=== PATIENT | female | born 1990 | race Caucasian/White ===

== ENCOUNTER 2019-11-26 08:10 | Inpatient (IN) | payer OTHER ==
[2019-11-26] MEDS: DEXTROSE 5%-LACTATED RINGERS 1,000 ML IV SCH (08:30)
[2019-11-26 09:58] VITALS: BMI 28.0
[2019-11-26] MEDS ORDERED: DINOPROSTONE 10 MG VAGINAL SUPPOSITORY VG ONE (11:30)
[2019-11-26 11:50] LABS: BASO % 0.3 % (0-2.0); EOS % 0.6 % (0-4.5); HEMOGLOBIN 11.6 GM/dL (10.7-15.3); LYMPH % 22.6 % (8-40); MCH 23.5 pg (25.7-33.7); MCHC 31.2 g/dl (32.0-36.0); MEAN CELL VOLUME 75.4 fl (80-96); MEAN PLT VOLUME 9.7 fl (7.5-11.1); MONO % 7.7 % (3.8-10.2); NEUT % 68.8 % (42.8-82.8); PLATELET COUNT 244 K/MM3 (134-434); RBC 4.91 M/mm3 (3.60-5.2); RDW 19.8 % (11.6-15.6)
[2019-11-26 11:55] LABS: INR 0.92 (0.83-1.09); PROTHROMBIN TIME (PATIENT) 10.8 SEC (9.7-13.0)
--- NOTE | 2019-11-26 11:56 | HP ---
Past Medical History - Primary Care Physician PCP:: Bright Simon - Admission Chief Complaint: 29yo P0 with at EGA 40w3d admitted for labor indx. History of Present Illness: Patient with post term admitted for labor indx. The pt has some mild irregular contractions. 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: Alzheimer's, CVA, Dementia, Migraine, Multiple Sclerosis, Peripheral Neuropathy, Parkinson's, Seizure, Syncope, TIA, Vertigo, Other Cardiovascular: No: AFIB, Aneurysm, Aortic Insufficiency, Aortic Stenosis, CAD, CHF, Deep Vein Thrombosis, HTN, Hyperlipdemia, ND, Mitral Insufficiency, Mitral Stenosis, Murmur, Pulmonary Hypertension, Other Pulmonary: No: Asthma, Bronchitis, Cancer, COPD, O2 Dependent, Pneumonia, Previously Intubated, Pulmonary Embolus, Pulmonary Fibrosis, Sleep Apnea, Other Gastrointestinal: No: Ascites, Cancer, Constipation, Crohn's Disease, Diverticulitis, Diverticulosis, Esophageal Varices, Gastritis, GERD, GI Bleed, Hemorrhoids, Hiatal Hernia, Inflamatory Bowel Disease, Irritable Bowel Disease, Pancreatitis, Peptic Ulcer Disease, Ulcerative Colitis, Other Hepatobiliary: No: Cirrhosis, Cholelithiasis, Cholecystitis, Choledocholithiasis, Hepatitis A, Hepatitis B, Hepatitis C, Other Renal/: No: Renal Failure, Renal Inusuff, BPH, Cancer, Hematuria, Hemodialysis, Neurogenic Bladder, Renal Calculi, UTI, Other Reproductive: No: Ectopic , Endometriosis, Fibroids, PID, Polycystic Ovary Syndrome, Postmenopausal, Other ...: 1 ...Para: 0 ...Term: 0 ...: 0 ...Spon : 0 ...Induced : 0 ...Living Children: 0 ...Multiple Gestation: 0 ...LMP: 02/18/19 ... Weeks Gestation by Dates: 40.3 ...EDC by Dates: 11/25/19 ...EDC by Sono: 11/23/19 Heme/Onc: No: Anemia, B12 Deficiency, Bleeding Disorder, Cancer, Current Chemotherapy, Current Radiation Therapy, Hemochromatosis, Hypercoaguable State, Myeloproliferative Synd, Sickle Cell Disease, Sickle Cell Trait, Thrombocytope amanda, Other Infectious Disease: No: AIDS, C-Diff, Herpes Zoster, HIV, MRSA, STD's, Tuberculosis, VREF, Other Psych: No: Addictions, Anxiety, Bipolar, Depression, Panic, Psychosis, Schizophrenia, Other Musculoskeletal: No: Bursitis, Chronic low back pain, Hemiparesis, Hemiplegia, Osteoarthritis, Paraplegia, Other Rheumatology: No: Fibromyalgia, Gout, Lupus, Rheumatoid Arthritis, Sarcoidosis, Vasculitis, Other ENT: No: Allergic Rhinitis, Sinusitis, Other Endocrine: No: [place]'s Disease, [place]'s Disease, Diabetes Insipidus, Diabetes Mellitus, Hyperparathyroidism, Hyperthyroidism, Hypothyroidism, Osteopenia, SIADH, Other Dermatology: No: Basal Cell, Cellulitis, Eczema, Melanoma, Psoriasis, Squamous Cell, Other - Past Surgical History Past Surgical History: Yes: None Hx Myomectomy: No Hx Transabdominal Cerclage: No - Smoking History Smoking history: Never smoked Have you smoked in the past 12 months: No - Alcohol/Substance Use Hx Alcohol Use: No History of Substance Use: reports: None - Social History Usual Living Arrangement: Yes: With Spouse Do you think of yourself as: Straight/Heterosexual ADL: Independent History of Recent Travel: No Home Medications - Allergies Allergies/Adverse Reactions: Allergies Allergy/AdvReac Type Severity Reaction Status Date / Time No Known Allergies Allergy Verified 11/26/19 09:50 - Home Medications Home Medications: Ambulatory Orders Vitamins (Sjr) - 1 tab PO DAILY 11/26/19 Family Medical History Family History: Denies Review of Systems Findings/Remarks: Pt reports feeling some contractions - Review of Systems Constitutional: reports: No Symptoms Eyes: reports: No Symptoms HENT: reports: No Symptoms Neck: reports: No Symptoms Cardiovascular: reports: No Symptoms Respiratory: reports: No Symptoms Gastrointestinal: reports: No Symptoms Genitourinary: reports: No Symptoms Breasts: reports: No Symptoms Reported Musculoskeletal: reports: No Symptoms Integumentary: reports: No Symptoms Neurological: reports: No Symptoms Endocrine: reports: No Symptoms Hematology/Lymphatic: reports: No Symptoms Psychiatric: reports: No Symptoms Pain Intensity: 2 Physical Exam - Maternity Vital Signs: Vital Signs Temperature 98.1 F 11/26/19 11:00 Pulse Rate 86 11/26/19 11:00 Respiratory Rate 20 11/26/19 11:00 Blood Pressure 122/68 11/26/19 11:00 O2 Sat by Pulse Oximetry (%) Constitutional: Yes: Well Nourished, No Distress, Calm Eyes: Yes: WNL, Conjunctiva Clear, EOM Intact HENT: Yes: WNL, Atraumatic, Normocephalic Neck: Yes: WNL, Supple, Trachea Midline Cardiovascular: Yes: WNL, Regular Rate and Rhythm Lungs: Clear to auscultation, Normal air movement Breast(s): Yes: WNL - Abdominal Exam/OB Fundal Height: 41 Number of Fetuses: Single Presentation: Vertex Contractions: Yes Regularity: Irregular Intensity: Mild/Mod Monitor Mode: External Heart Rate (range): 140 Heart Rate Location: Midline Category: I Accelerations: Uniform Decelerations: None - Vaginal Exam/OB Vaginal Bleeding: No Speculum Exam: No Dilatation (cm): 1 Effacement (%): 80 Amniotic Membrane Status: Intact Presentation: Vertex/Position Station: -3 (EFW 4000 gram by Jose maneuvers (~4400 gm by sono), gynecoid pelvimetry.) - Physical Exam Musculoskeletal: Yes: WNL Extremities: Yes: WNL Edema: No Integumentary: Yes: WNL Deep Tendon Reflex Grade: Normal +2 ...Motor Strength: WNL Psychiatric: Yes: WNL, Alert, Oriented Hemorrhage Risk Assessment - Risk Factors Medium Risk Factors: Yes: EFW greater than 4000g High Risk Factors: Yes: None Risk Score: 1 Risk Level: Medium Risk Imaging - Results Ultrasound: Report Reviewed Assessment/Plan 29yo P0 with at EGA 40w3d admitted for labor indx. Fetus with Category I tracing. Patient with unfavorable cervical exam. Pt is not in labor yet, no cervical change from exam in the office. Adequate gynecoid pelvimetry on exam. We had long discussion re: risks, benefits, and alternatives of labor induction. I explained the options of expectant management awaiting spontaneous labor, induction of labor, and elective section. The risks of uterine tachysystole, distress, uterine rupture, need for emergency C/S, hemorrhage, infection, scarring, etc. were discussed. We also discussed the risks of meconium aspiration, shoulder dystocia, and anesthesia options. We sp ent additional time discussing with patient and her the risks of VANESSA and delivery of fetus with suspected macrosomia. I explained that the risks of shoulder dystocia are higher and it cannot be predicted, explained the risks of and/or maternal injury, morbidity, mortality. We discussed the increased risks abnormal labor, hemorrhage, emergency C/S, etc. The pt refused an elecive C/S and wants to prroceed with labor indx. We discussed the alternative methods of induction with Cervidil, Cytotec, Folley ballon, and pitocin. The pt prefers Cervidil followed by pitocin, if needed.
[2019-11-26 11:58] LABS: ACTIVATED PTT 25.5 SECONDS (25.2-36.5)
[2019-11-26] MEDS ORDERED: BUTORPHANOL TARTRATE 1 MG/ML VIAL IVPB ONE (12:00)
[2019-11-26] MEDS ORDERED: PROMETHAZINE HCL 25 MG/1 ML VIAL IVPB ONE (12:00)
[2019-11-26] MEDS ORDERED: BUTORPHANOL TARTRATE 2 MG/ML VIAL IVPB ONE (12:00)
[2019-11-26] MEDS ORDERED: BUTORPHANOL TARTRATE 2 MG/ML VIAL ONE (12:03)
[2019-11-26] MEDS ORDERED: PROMETHAZINE HCL 25 MG/1 ML VIAL ONE (12:04)
[2019-11-26 12:24] LABS: BLOOD UREA NITROGEN 6.4 mg/dL (7-18); CALCIUM 8.8 mg/dL (8.5-10.1); CREATININE 0.6 mg/dL (0.55-1.3); POTASSIUM 4.8 mmol/L (3.5-5.1)
[2019-11-26] MEDS ORDERED: PCA PUMP NR ONE ×2 (16:08→20:32)
[2019-11-26] MEDS ORDERED: FENTANYL/BUPIVACAINE/NS/PF - PCEA - 50 ML DISP.SYRIN EP ONE ×2 (16:08→20:34)
[2019-11-26] MEDS ORDERED: BUPIVACAINE HCL/PF 0.25% (2.5MG/ML) 10 ML VIAL ONE ×2 (17:00→20:30)
[2019-11-26] MEDS ORDERED: NALOXONE HCL 0.4 MG/ML VIAL IVPUSH PRN (17:25)
[2019-11-26] MEDS ORDERED: FENTANYL/BUPIVACAINE/NS/PF - PCEA - 50 ML DISP.SYRIN EP SCH (17:30)
[2019-11-26] MEDS ORDERED: ELECTROLYTE-148 SOLN 500 ML IV ONE (18:29)
[2019-11-26] MEDS ORDERED: ELECTROLYTE-148 SOLN 1,000 ML IV SCH (18:30)
--- NOTE | 2019-11-26 21:31 | PN ---
Ante-Partal Exam - Subjective Subjective: Pt w/o complaints Vital Signs: Vital Signs Temperature 98.7 F 11/26/19 20:00 Pulse Rate 70 11/26/19 21:15 Respiratory Rate 20 11/26/19 21:15 Blood Pressure 109/63 11/26/19 21:15 O2 Sat by Pulse Oximetry (%) 100 11/26/19 21:15 Bleeding: No Headache: No Visual changes: No Right upper quadrant pain: No Pain (scale 1-10): 0 - Contractions Contractions: Yes Regularity: Regular Intensity: Mod/Strong Monitor Mode: External - Exam during Labor Heart Rate: 140 Variability: Moderate Heart Rate Location: Midline Category: I Monitor Accelerations: Present Monitor Decelerations: None Exam: Vaginal Dilatation (cm): 2 Effacement (%): 90 Amniotic Membrane Status: Leaking Amniotic Fluid: Clear Presentation: Vertex Station: -3 - Intrapartum Hemorrhage Risk Medium Risk Factors: None High Risk Factors: None Risk Score: 0 Risk Level: Low Risk - Assessment/Plan Assessment/Plan: 29yo P0 with at EGA 40w3d undergoing labor indx. She is alysa spontaneously but no progress in latent labor. We again discussed options of continued labor and possible pitocin infusion vs C/S. The pt prefers to continue spont labor.
[2019-11-26] MEDS ORDERED: CITRIC ACID/SODIUM CITRATE 30 ML UNIT-DOSE CUP PO ONE (22:14)
--- NOTE | 2019-11-26 22:20 | PN ---
Ante-Partal Exam - Subjective Subjective: Pt decided to have a . We discussed the risks and benefits. Vital Signs: Vital Signs Temperature 98.3 F 11/26/19 21:00 Pulse Rate 70 11/26/19 21:15 Respiratory Rate 20 11/26/19 21:15 Blood Pressure 109/63 11/26/19 21:15 O2 Sat by Pulse Oximetry (%) 100 11/26/19 21:15 Bleeding: No Headache: No Visual changes: No Right upper quadrant pain: No Pain (scale 1-10): 0 - Contractions Contractions: Yes Regularity: Regular Intensity: Moderate Monitor Mode: External - Exam during Labor Heart Rate: 140 Variability: Moderate Heart Rate Location: Midline Category: I Monitor Accelerations: Present Monitor Decelerations: None Amniotic Fluid: Clear Presentation: Vertex Station: -3 - Intrapartum Hemorrhage Risk Medium Risk Factors: None High Risk Factors: None Risk Score: 0 Risk Level: Low Risk - Assessment/Plan Assessment/Plan: Plan to proceed with C/S. We discussed the risks and benefits of C/S at length, including but not limited to scarring, pain, bleeding, infection, injury to underlying organs and structures, need for additional surgery to repair/treat any problems or complications, complications/injuries, etc. The pt verbali zed her understanding and requested to proceed with surgery. The pt is aware that all surgeries have risks and no guarantees can be provided.
[2019-11-26] MEDS ORDERED: LIDO 2%/EPI 1:200000 PRESRVFRE (20 ML SDVIAL) ONE (22:33)
[2019-11-26] MEDS ORDERED: MIDAZOLAM HCL 2 MG/2 ML SINGLE DOSE VIAL ONE (23:10)
[2019-11-26] MEDS ORDERED: OXYTOCIN 10 UNITS/ML VIAL ONE ×4 (23:35)
[2019-11-26] MEDS ORDERED: PHENYLEPHRINE HCL 10 MG/1 ML SINGLE DOSE VIAL ONE (23:35)
[2019-11-26] MEDS ORDERED: ceFAZolin SODIUM 1 GM VIAL ONE ×2 (23:35)
[2019-11-26] MEDS ORDERED: HYDROmorphone *PCA* 10MG/50ML DISP.SYRIN PCA SCH (23:45)
[2019-11-26] MEDS ORDERED: METHYLERGONOVINE MALEATE 0.2 MG/1 ML AMP IM PRN (23:48)
[2019-11-26] MEDS ORDERED: BENZOCAINE 28 GM HEMORRHOIDAL OINTMENT TP PRN (23:48)
[2019-11-26] MEDS ORDERED: oxyCODONE HCL 5 MG TABLET PO PRN (23:48)
[2019-11-26] MEDS ORDERED: BENZOCAINE 20% 57 GM BOTTLE TP PRN (23:48)
[2019-11-26] MEDS ORDERED: WITCH HAZEL 50% (TUCKS) 40 PAD/JAR PAD TP PRN (23:48)
[2019-11-26] MEDS ORDERED: SENNOSIDES/DOCUSATE COMBO (SENNA PLUS) TABLET (UD) PO PRN (23:48)
[2019-11-26] MEDS ORDERED: ONDANSETRON 4 MG/2 ML VIAL IVPUSH PRN (23:52)
[2019-11-26] MEDS ORDERED: PROMETHAZINE HCL 25 MG/1 ML VIAL IVPUSH PRN (23:52)
--- NOTE | 2019-11-26 23:55 | OP ---
Operative Note - Note: Operative Date: 11/26/19 Pre-Operative Diagnosis: Post term prgnancy at EGA 40w 3d. macrosomia. Failed induction, failure to progress. Operation: Primary LT C/S Findings: Live baby boy in Vtx/OP presentation, light meconium in amniotic fluid, nuchal cord x 1. 9-9. Wt 9lb 5 oz. Normal uterus, ovaries, tubes. Post-Operative Diagnosis: Same as Pre-op Surgeon: Bright Simon Hard Candy Batch Mixer: Savi Barnett Anesthesiologist/WORKFORCE ADVISOR: Kael Grant Anesthesia: Epidural Specimens Removed: Placenta Estimated Blood Loss (mls): 700 Drains & Tubes with Location: Mcguire cath Drains, Volume Out (mls): 300 Blood Volume Replaced (mls): 0 Fluid Volume Replaced (mls): 1,500 Operative Report Dictated: Yes
[2019-11-27] MEDS ORDERED: HYDROmorphone *PCA* 10MG/50ML DISP.SYRIN ONE (01:00)
[2019-11-27] MEDS: OXYTOCIN 20 UNITS in 0.9% NS 20 UNIT/1,000 ML INFUS.BAG IV SCH (03:17)
[2019-11-27] MEDS: IBUPROFEN 800 MG/8 ML IJ IVPB PRN ×2 (05:52→22:34)
--- NOTE | 2019-11-27 08:22 | OP ---
DATE OF OPERATION: 11/26/2019 PREOPERATIVE DIAGNOSIS: Post term with estimated gestational age of 40 weeks and 3 days, macrosomia, failed induction of labor, failure to progress. POSTOPERATIVE DIAGNOSIS: Post term with estimated gestational age of 40 weeks and 3 days, macrosomia, failed induction of labor, failure to progress. PROCEDURE: Primary low transverse section via Pfannenstiel skin incision. SURGEON: Bright Simon MD WOVEN LABEL DESIGNER: Savi Barnett MD ANESTHESIOLOGIST: Kael Grant MD ANESTHESIA: Epidural. COMPLICATIONS: None. ESTIMATED BLOOD LOSS: 700 mL. URINE OUTPUT: 300 mL of clear urine at the end of the procedure. IV FLUIDS: 1500 mL. PATHOLOGY: Placenta. FINDINGS: Live baby boy in vertex presentation with occiput posterior. Light meconium in amniotic fluids. A nuchal cord noted wrapped around once. 's 9 and 9. Baby's weight 9 pounds and 5 ounces. Normal uterus, ovaries and fallopian tubes were noted. PROCEDURE: The patient was met preoperatively. Risks, benefits and alternatives of surgery were discussed in details. The consent was form was reviewed and explained. The patient verbalized her understanding and requested to proceed with surgery. The patient was brought to the OR with the IV running. She was placed on the surgical table in the supine position. The epidural anesthesia was bolused and the level was found to be adequate. The patient was prepped and draped in the usual sterile fashion. A Mcguire catheter was inserted and left to drain to gravity. The timeout was conducted as per standard protocol. The surgeons then proceeded with the operation. A Pfannenstiel skin incision was made with the knife approximately 2 cm above the pubic symphysis. The incision was extended bilaterally. The incision was then carried down to the level of fascia. The fascia was incised in the midline. The fascia incision was extended bilaterally using Dodson scissors. The fascia was then dissected away from the rectus muscles superiorly and inferiorly using sharp dissection. The rectus muscles were in the midline using blunt dissection. The peritoneum was tented up with 2 Cici clamps and entered sharply. The peritoneal incision was extended superiorly and inferiorly. The bladder peritoneum was then dissected away from the lower uterine segment. The bladder was reflected downwards using a Irma retractor. The uterus was incised transversely in the lower uterine segment. The incision was extended bilaterally using bandage scissors. The amniotic fluid was noted to be stained lightly with meconium. The baby was delivered from vertex presentation without complications. The nuchal cord was noted to be wrapped around once and was released without difficulty. The baby was crying spontaneously and was handed to the waiting medicaid collection specialist. A segment of the umbilical cord was secured for umbilical cord blood gas. The placenta was then removed manually and without complications. The uterus was cleared of all clots and debris using laparotomy laps. The uterine incision was repaired using the 0 Biosyn suture with good hemostasis and approximation. The uterine incision was then imbricated using a secondary layer of closure with a 0 Biosyn suture. Good hemostasis was confirmed. The bladder peritoneum was then approximated using a 0 Biosyn suture. Once again, good hemostasis was confirmed. The operative site was irrigated using copious amounts of normal saline. The parietal peritoneum was then approximated using 2-0 chromic suture. The rectus muscles were approximated using several interrupted 2-0 chromic sutures. The fascia was closed using a 0 Vicryl suture with a running stitch. The No's fascia and the subcutaneous adipose tissues were approximated using several interrupted 2-0 chromic sutures. The skin was closed using a 4-0 Vicryl suture using a subcutaneous stitch. Sponge, lap, needle counts were correct. The patient tolerated the procedure well and she was transferred to recovery room in stable condition and awake. Myah [id number]
[2019-11-27 09:42] LABS: BASO % 0.6 % (0-2.0); HEMATOCRIT 30.6 % (32.4-45.2); HEMOGLOBIN 9.7 GM/dL (10.7-15.3); LYMPH % 16.1 % (8-40); MCH 23.9 pg (25.7-33.7); MCHC 31.7 g/dl (32.0-36.0); MEAN CELL VOLUME 75.2 fl (80-96); MEAN PLT VOLUME 9.2 fl (7.5-11.1); MONO % 7.8 % (3.8-10.2); NEUT % 75.5 % (42.8-82.8); PLATELET COUNT 206 K/MM3 (134-434); RBC 4.07 M/mm3 (3.60-5.2); RDW 19.7 % (11.6-15.6)
[2019-11-27] MEDS: ENOXAPARIN NA (PORCINE) 40 MG/0.4 ML DISP.SYRIN SQ SCH (09:53)
[2019-11-27] MEDS: PRENATAL VITAMINS W/ FOLIC ACID TABLET (FP) PO SCH (09:54)
[2019-11-27] MEDS: CEFAZOLIN 1 GM/D5W 1 GM/50 ML BAG IVPB SCH ×2 (09:54→15:31)
[2019-11-27] MEDS: ACETAMINOPHEN 325 MG TABLET (FP) PO PRN ×2 (12:28→17:49)
[2019-11-27] MEDS: IBUPROFEN 600 MG TABLET (FP) PO PRN ×2 (12:35→17:49)
--- NOTE | 2019-11-27 12:59 | PN ---
Post Progress Note - Subjective Subjective: Patient without acute complaints. Reports tolerating oral intake without nausea or vomiting. Ambulating without dizziness. Denies fevers or chills. Pain well controlled with oral pain medication. Pumping/breast feeding without issue. Passing flatus. Post Day: 1 Type of Delivery: Primary C/S Vital Signs: Vital Signs Temperature 98.0 F 11/27/19 12:20 Pulse Rate 87 11/27/19 12:20 Respiratory Rate 20 11/27/19 12:20 Blood Pressure 109/63 11/27/19 12:20 O2 Sat by Pulse Oximetry (%) 95 11/27/19 12:20 Breast Exam: Yes: Soft Uterus: Yes: Fundus Firm, Fundus below umbilicus, Non-tender Incision: Yes: Dressing dry and intact Abdomen/GI: Yes: Abdomen soft, Passing flatus, Tolerating PO Lochia: Yes: Rubra Lochia, amount: Small Extremities: Yes: Calves non-tender Perineum: Yes: Intact Activity: Ambulating - Labs Labs: CBC WBC 13.0 K/mm3 (4.0-10.0) H 11/27/19 09:24 RBC 4.07 M/mm3 (3.60-5.2) 11/27/19 09:24 Hgb 9.7 GM/dL (10.7-15.3) L 11/27/19 09:24 Hct 30.6 % (32.4-45.2) L D 11/27/19 09:24 MCV 75.2 fl (80-96) L 11/27/19 09:24 MCH 23.9 pg (25.7-33.7) L 11/27/19 09:24 MCHC 31.7 g/dl (32.0-36.0) L 11/27/19 09:24 RDW 19.7 % (11.6-15.6) H 11/27/19 09:24 Plt Count 206 K/MM3 (134-434) 11/27/19 09:24 MPV 9.2 fl (7.5-11.1) 11/27/19 09:24 Absolute Neuts (auto) 9.8 K/mm3 (1.5-8.0) H 11/27/19 09:24 Neutrophils % 75.5 % (42.8-82.8) 11/27/19 09:24 Lymphocytes % 16.1 % (8-40) D 11/27/19 09:24 Monocytes % 7.8 % (3.8-10.2) 11/27/19 09:24 Eosinophils % 0.0 % (0-4.5) D 11/27/19 09:24 Basophils % 0.6 % (0-2.0) 11/27/19 09:24 Nucleated RBC % 0 % (0-0) 11/27/19 09:24 Assessment/Plan 29yo P1 s/p primary LT C/S, doing well stable, afebrile. The pt is asymptomatic for s/sxs of anemia. care instructions reviewed. Postoperative care and instructions reviewed. Continue routine postop care. Ambulation encouraged.
[2019-11-27] MEDS ORDERED: PCA PUMP KEY 1 EACH EACH ONE (18:06)
[2019-11-27] MEDS ORDERED: BISACODYL 10 MG SUPP.RECT RC PRN (23:49)
[2019-11-28] MEDS: CEFAZOLIN 1 GM/D5W 1 GM/50 ML BAG IVPB SCH (01:13)
[2019-11-28] MEDS: DEXTROSE 5%-LACTATED RINGERS 1,000 ML IV SCH (01:13)
[2019-11-28] MEDS: OXYTOCIN 20 UNITS in 0.9% NS 20 UNIT/1,000 ML INFUS.BAG IV SCH (01:15)
[2019-11-28] MEDS: ACETAMINOPHEN 325 MG TABLET (FP) PO PRN ×3 (04:53→18:32)
[2019-11-28] MEDS: IBUPROFEN 600 MG TABLET (FP) PO PRN ×3 (04:53→18:32)
--- NOTE | 2019-11-28 07:03 | PN ---
Progress Note, Physician Chief Complaint: s/p c section under spinal anesthesia History of Present Illness: post op day one, speech lang path for post op pain control - Current Medication List Current Medications: Active Medications Acetaminophen (Tylenol -) 650 mg PO Q4H PRN PRN Reason: FEVER Last Admin: 11/28/19 04:53 Dose: 650 mg Documented by: Benzocaine (Americaine 20% Thurmond -) 1 spray TP PRN PRN PRN Reason: Pain - Topical Benzocaine (Americaine Ointment -) 1 applic TP PRN PRN PRN Reason: Pain - Topical Bisacodyl (Dulcolax Suppository -) 10 mg RC PRN PRN PRN Reason: CONSTIPATION Enoxaparin Sodium (Lovenox -) 40 mg SQ DAILY [facility] Last Admin: 11/27/19 09:53 Dose: 40 mg Documented by: Ibuprofen (Motrin -) 600 mg PO Q4H PRN PRN Reason: PAIN LEVEL 1 - 3 Last Admin: 11/28/19 04:53 Dose: 600 mg Documented by: Ibuprofen (Caldolor Injection -) 800 mg IVPB Q8H PRN PRN Reason: PAIN LEVEL 1-5 Last Admin: 11/27/19 22:34 Dose: 800 mg Documented by: Methylergonovine Maleate (Methergine Injection -) 0.2 mg IM Q4H PRN PRN Reason: Excessive Bleeding (L&D) Naloxone HCl (Narcan -) 0.4 mg IVPUSH PRN PRN PRN Reason: Sedation Oxycodone HCl (Roxicodone -) 5 mg PO Q4H PRN PRN Reason: PAIN LEVEL 4 - 6 Multivit/Folic Acid/Iron ( Vitamins (Sjr) -) 1 tab PO DAILY [facility] Last Admin: 11/27/19 09:54 Dose: 1 tab Documented by: Promethazine HCl (Phenergan Injection -) 12.5 mg IVPUSH Q6H PRN PRN Reason: NAUSEA-FOR RESCUE AFTER 15 MIN Senna/Docusate Sodium (Pericolace -) 2 tablet PO HS PRN PRN Reason: CONSTIPATION Simethicone (Mylicon -) 80 mg PO Q4H PRN PRN Reason: GAS Witch Romina/Glycerin (Tucks Pads -) 1 pad TP PRN PRN PRN Reason: Pain - Topical - Objective Vital Signs: Vital Signs Temperature 98.0 F 11/27/19 22:00 Pulse Rate 71 11/27/19 22:00 Respiratory Rate 20 11/27/19 23:00 Blood Pressure 111/69 11/27/19 22:00 O2 Sat by Pulse Oximetry (%) 96 11/27/19 22:00 Constitutional: Yes: Well Nourished Cardiovascular: Yes: WNL Respiratory: Yes: WNL Gastrointestinal: Yes: WNL Labs: CBC, BMP 11/27/19 09:24 11/26/19 11:20 INR, PTT INR 0.92 (0.83-1.09) 11/26/19 11:20 Assessment/Plan Patient doing well, no adverse anesthetic reactions, pain controlled, patient not taking PO yet, will continue speech lang path until tolerating po. will continue to follow for pain management.
--- NOTE | 2019-11-28 09:51 | PN ---
Post Progress Note - Subjective Subjective: Patient without acute complaints. Reports tolerating regular diet without nausea or vomiting. Ambulating without dizziness. Denies fevers or chills. Pain is well controlled with oral pain medication. Passing flatus. Post Day: 2 Type of Delivery: Primary C/S Vital Signs: Vital Signs Temperature 98.0 F 11/27/19 22:00 Pulse Rate 71 11/27/19 22:00 Respiratory Rate 20 11/27/19 23:00 Blood Pressure 111/69 11/27/19 22:00 O2 Sat by Pulse Oximetry (%) 96 11/27/19 22:00 Breast Exam: Yes: Soft Uterus: Yes: Fundus Firm, Fundus below umbilicus, Non-tender Incision: Yes: Sutures intact Abdomen/GI: Yes: Abdomen soft, Tolerating PO Lochia: Yes: Rubra Lochia, amount: Small Extremities: Yes: Calves non-tender Perineum: Yes: Intact Activity: Ambulating - Labs Labs: CBC WBC 13.0 K/mm3 (4.0-10.0) H 11/27/19 09:24 RBC 4.07 M/mm3 (3.60-5.2) 11/27/19 09:24 Hgb 9.7 GM/dL (10.7-15.3) L 11/27/19 09:24 Hct 30.6 % (32.4-45.2) L D 11/27/19 09:24 MCV 75.2 fl (80-96) L 11/27/19 09:24 MCH 23.9 pg (25.7-33.7) L 11/27/19 09:24 MCHC 31.7 g/dl (32.0-36.0) L 11/27/19 09:24 RDW 19.7 % (11.6-15.6) H 11/27/19 09:24 Plt Count 206 K/MM3 (134-434) 11/27/19 09:24 MPV 9.2 fl (7.5-11.1) 11/27/19 09:24 Absolute Neuts (auto) 9.8 K/mm3 (1.5-8.0) H 11/27/19 09:24 Neutrophils % 75.5 % (42.8-82.8) 11/27/19 09:24 Lymphocytes % 16.1 % (8-40) D 11/27/19 09:24 Monocytes % 7.8 % (3.8-10.2) 11/27/19 09:24 Eosinophils % 0.0 % (0-4.5) D 11/27/19 09:24 Basophils % 0.6 % (0-2.0) 11/27/19 09:24 Nucleated RBC % 0 % (0-0) 11/27/19 09:24 Assessment/Plan 29yo P1 s/p primary LT C/S, doing well stable, afebrile. The pt is recovering appropriately. care reviewed. Continue routine postop care. Ambulation encouraged.
[2019-11-28] MEDS: ENOXAPARIN NA (PORCINE) 40 MG/0.4 ML DISP.SYRIN SQ SCH (10:03)
[2019-11-28] MEDS: PRENATAL VITAMINS W/ FOLIC ACID TABLET (FP) PO SCH (10:04)
--- NOTE | 2019-11-28 10:40 | DS ---
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 Signs: Vital Signs Temperature 98.0 F 11/27/19 22:00 Pulse Rate 71 11/27/19 22:00 Respiratory Rate 20 11/27/19 23:00 Blood Pressure 111/69 11/27/19 22:00 O2 Sat by Pulse Oximetry (%) 96 11/27/19 22:00 Constitutional: Yes: Well Nourished, No Distress, Calm Eyes: Yes: WNL, Conjunctiva Clear HENT: Yes: WNL, Atraumatic, Normocephalic Neck: Yes: WNL, Supple, Trachea Midline Cardiovascular: Yes: WNL, Regular Rate and Rhythm Respiratory: Yes: WNL, Regular, CTA Bilaterally Gastrointestinal: Yes: WNL, Normal Bowel Sounds, Soft ...Rectal Exam: Yes: Deferred Renal/: Yes: WNL Internal Exam Deferred: Yes ....Post : Yes: Uterus firm, Uterus non-tender, Slight lochia rubra Breast(s): Yes: WNL Musculoskeletal: Yes: WNL Extremities: Yes: WNL Edema: Yes Edema: LLE: Trace, RLE: Trace Integumentary: Yes: WNL Wound/Incision: Yes: Clean/Dry, Well Approximated, Sutures Intact, Steri Strips, Open to air Neurological: Yes: WNL, Alert, Oriented ...Motor Strength: WNL Psychiatric: Yes: WNL, Alert, Oriented Labs: CBC, BMP 11/27/19 09:24 11/26/19 11:20 Delivery - Delivery Section: Primary, Low Flap Transverse Type of Anesthesia: Epidural Episiotomy/Laceration: None EBL (cc): 700 Delivery, Single - Stages of Labor Date 1st Stage Initiatied: 11/26/19 Time 1st Stage Initiated: 12:10 Date of Delivery: 11/26/19 Time of Delivery: 23:01 Time Placenta Delivered: 23:02 Placenta: Yes: Expressed, Manual Removal, Normal Configuration - 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 Plan of Treatment: Normal postoperative and recovery. Encouraged breast feeding Goals: Normal postoperative and recovery. Condition: Good - Instructions Diet, Activity, Other Instructions: Follow-up visit in the office in 1 week. Call the office with any concerns. Physical activity Resume your normal everyday activity as tolerated no heavy lifting or exercise until seen by your surgeon. You may walk unlimited [place] of and climb stairs. You may resume driving the car when you feel safe and comfortable behind the wheel. No sexual activity as instructed. Wound care If you have a bandage, leave it on, and keep dry for 48-72 hours. After that time discard the outer bandage. If they are tapes on the skin under the out of bandage leave them in place. They will peel off in the next 7 to 10 days. Do Not Peel them off. You may shower the day after surgery. If there are tapes present on the skin, you may shower over them. Diet There are no dietary restrictions. Eat healthy, high-fiber foods. Drink 6 to 8 glasses of liquid each day. This will assist in keeping your bowels are regular. Pain management You may take Tylenol or acetaminophen or Ibuprofen (for example, Motrin, Advil etc.) from my pain prescription medication is ordered should be taken as prescribed for moderate to severe pain. Call MD for any of the following: Severe pain not relieved by medication Fever of 101 or higher Excessive bleeding or drainage on dressing Inability to urinate Referrals: Bright Simon MD [Staff Physician] - 1 Week Disposition: HOME - Home Medications Comprehensive Discharge Medication List: Ambulatory Orders Vitamins (Sjr) - 1 tab PO DAILY 11/26/19 Prescription Drug Monitoring Program (I-STOP) results: I-STOP not reviewed
[2019-11-28 12:05] LABS: POC NITRAZINE POS
[2019-11-28] MEDS: SIMETHICONE 80 MG TAB.CHEW (FP) PO PRN ×2 (12:06→18:32)
[2019-11-29] MEDS: ACETAMINOPHEN 325 MG TABLET (FP) PO PRN ×2 (02:46→10:19)
[2019-11-29] MEDS: SIMETHICONE 80 MG TAB.CHEW (FP) PO PRN ×2 (02:46→10:18)
[2019-11-29] MEDS: IBUPROFEN 600 MG TABLET (FP) PO PRN ×2 (02:47→10:18)
[2019-11-29 07:41] LABS: BASO % 0.3 % (0-2.0); EOS % 1.8 % (0-4.5); HEMATOCRIT 32.7 % (32.4-45.2); HEMOGLOBIN 10.4 GM/dL (10.7-15.3); LYMPH % 19.5 % (8-40); MCH 24.1 pg (25.7-33.7); MCHC 31.8 g/dl (32.0-36.0); MEAN CELL VOLUME 75.6 fl (80-96); MEAN PLT VOLUME 9.6 fl (7.5-11.1); MONO % 5.8 % (3.8-10.2); NEUT % 72.6 % (42.8-82.8); PLATELET COUNT 252 K/MM3 (134-434); RBC 4.33 M/mm3 (3.60-5.2); RDW 19.9 % (11.6-15.6); WHITE BLOOD COUNT 10.6 K/mm3 (4.0-10.0)
[2019-11-29] MEDS: PRENATAL VITAMINS W/ FOLIC ACID TABLET (FP) PO SCH (10:18)
[2019-11-29] MEDS: ENOXAPARIN NA (PORCINE) 40 MG/0.4 ML DISP.SYRIN SQ SCH (10:19)
[2019-11-29 11:50] VITALS: BP 113/69; PULSE 73; TEMP 98.6
--- NOTE | 2019-12-02 16:47 | PATH ---
Surgical Pathology Report Patient Name: ELISHA MUÑOZ [facility]. Rec. #: [id number] /Age/Gender: 1990 (Age: 29) / F Account: [id number] Location: [facility] OBS/SUPERINTENDENT JOB Taken: 11/26/2019 Received: 11/28/2019 Reported: 12/02/2019 Physicians: Bright Simon M.D. Specimen(s) Received PLACENTA Clinical History 40.4 weeks gestation, macrosomia, , failure to progress, primary Final Diagnosis PLACENTA: THIRD TRIMESTER PLACENTA. TRIVASCULAR CORD. MEMBRANES WITH NO DIAGNOSTIC ABNORMALITIES. Electronically Signed Ar Murdock M.D. Gross Description The specimen is received fresh labeled placenta and is a 579 gram, 21.0 x 20.0 x 2.8 cm. placenta with attached membranes and umbilical cord. The attached membranes are andrade, translucent with focal opacities and insert marginally. The umbilical cord measures 11 cm. in length and averages 1.3 cm. in diameter. The cord inserts eccentrically, 5 cm. to the nearest margin. No true knots or strictures are identified. Cut surface of the umbilical cord reveals 3 vessels. The surface is vazquez-blue with minimal fibrin deposition and appropriate caliber vessels. The maternal surface is red-brown with focal defects. Sectioning reveals red-brown, spongy parenchyma. No lesions are identified. Educational Therapy Teacher sections are submitted in three cassettes as follows: 1- membrane rolls and umbilical cord; 2-3- full thickness sections of placenta. 12/01/2019 formerly [facility]12/01/2019
== END 2019-11-29 11:10 | disposition home or self-care (01) | DRG 833 ==
LOC: JLDR 08:10 → J3W 11-27 02:55
PROVIDERS: ADMIT Obstetrics & Gynecology; ATTEND Obstetrics & Gynecology
DX: O48.0 Post-term pregnancy (principal); O36.63X0 Maternal care for excessive fetal growth, third trimester, not applicable or unspecified; O77.0 Labor and delivery complicated by meconium in amniotic fluid; O62.0 Primary inadequate contractions; Z3A.40 40 weeks gestation of pregnancy; Z37.0 Single live birth
CPT/HCPCS: 36415; 80048; 83986-QW; 85025; 85610; 85730; 86780; 86850; 86900; 86901; 88307-TC

== ENCOUNTER 2023-07-16 15:19 | Emergency (ER) | payer OTHER ==
[2023-07-16 15:43] VITALS: BP 102/71; PULSE 79; RESP 18; TEMP 97.4; BMI 23.0
== END 2023-07-16 16:00 | disposition home or self-care (01) ==
LOC: FER 15:19
DX: R11.10 Vomiting, unspecified (principal); R19.7 Diarrhea, unspecified; J02.9 Acute pharyngitis, unspecified; R09.89 Other specified symptoms and signs involving the circulatory and respiratory systems; R05.9 Cough, unspecified; J11.1 Influenza due to unidentified influenza virus with other respiratory manifestations
CPT/HCPCS: 81025; 99281-25